=== PATIENT | female | born 1960 | race Caucasian/White ===

== ENCOUNTER 2024-07-18 13:23 | Emergency (ER) | payer MEDICARE, OTHER ==
[2024-07-18] MEDS ORDERED: Ketorolac Tromethamine 30 MG (1 mL) VIAL ONE (13:50)
== END 2024-07-18 14:47 | disposition home or self-care (01) ==
LOC: NAV ERS 13:23
DX: T82.524A Displacement of infusion catheter, initial encounter (principal); I10 Essential (primary) hypertension; Z86.73 Personal history of transient ischemic attack (TIA), and cerebral infarction without residual deficits
CPT/HCPCS: 96372; 99283; J1885